=== PATIENT | male | born 1960 | race Caucasian/White ===

== ENCOUNTER 2016-09-30 11:50 | Emergency (ER) | payer BC ==
--- NOTE | 2016-09-30 12:49 | XRAY Preliminary Report ---
Exam: XR Foot 3 View RT IMPRESSION: Normal foot radiography. [facility] SITE ID: [id number]
--- NOTE | 2016-09-30 12:52 | XRAY Report ---
EXAM: RIGHT FOOT RADIOGRAPHY EXAM DATE: 09/30/2016 12:28 PM. CLINICAL HISTORY: Foot swelling with history of gout and arthritis. COMPARISON: None. TECHNIQUE: 3 views. FINDINGS: Bones: Normal. No fractures or bone lesions. Joints: Normal. No subluxations. Soft Tissues: Normal. No soft tissue swelling. IMPRESSION: Normal foot radiography. [facility] Referring Provider Line: [phone] SITE ID: [id number]
[2016-09-30] MEDS ORDERED: predniSONE 20 MG TABLET PO STA (12:55)
[2016-09-30] MEDS ORDERED: HYDROcod/ACETAM 5/325 MG TABLET PO STA (12:55)
[2016-09-30] MEDS ORDERED: COLCHICINE 0.6 MG TABLET PO STA (12:55)
--- NOTE | 2016-09-30 12:59 | ED Physician Documentation ---
PD HPI LOWER EXT INJURY - Stated complaint Stated Complaint: R FOOT PX - Chief complaint Chief Complaint: Ext Problem - History obtained from History obtained from: Patient - History of Present Illness PD HPI LOW EXT INJURY LOCATION: Right, Foot Type of injury: Other (Has a history of gout, this flare has been bothering her for couple weeks and seems worse since he restarted allopurinol week ago. No measured fevers.) - Treatment prior to arrival Treatment prior to arrival: Cannot walk now,using crutches Review of Systems Constitutional: denies: Fever, Chills Nose: reports: Reviewed and negative Cardiac: reports: Reviewed and negative Respiratory: reports: Reviewed and negative PD PAST MEDICAL HISTORY - Past Medical History Past Medical History: Yes Musculoskeletal: Osteoarthritis, Gout Other Past Medical History: prostate ca - Past Surgical History Past Surgical History: Yes - Present Medications Home Medications: Ambulatory Orders Medication Instructions Recorded Confirmed Alprazolam [Xanax] 0.5 mg PO Q6HR PRN 09/30/16 09/30/16 Colchicine 0.6 mg PO Q2H PRN #2 capsule 09/30/16 HYDROcod/ACETAM 5/325 [Mellette 5/325] 1 - 2 ea PO Q6H PRN #15 tablet 09/30/16 predniSONE [Deltasone] 60 mg PO DAILY 5 Days 09/30/16 - Allergies Allergies/Adverse Reactions: Allergies Allergy/AdvReac Type Severity Reaction Status Date / Time No Known Drug Allergies Allergy Verified 09/30/16 11:56 - Social History Does the pt smoke?: No Smoking Status: Never smoker PD ED PE NORMAL - Vitals Vital signs reviewed: Yes - General General: Alert and oriented X 3, No acute distress - Extremities Extremities: Other (Redness and swelling that is focused between the first and second metatarsals distally without limited range of motion or tenderness, bounding pedal pulses.) - Neuro Neuro: Alert and oriented X 3, Normal speech - Psych Psych: Normal mood, Normal affect Results - Vitals Vitals: Vital Signs - 24 hr 09/30/16 09/30/16 11:54 13:24 Temperature 36.7 C 36.8 C Heart Rate 94 90 Respiratory 18 18 Rate Blood Pressure 127/87 H 117/69 O2 Saturation 97 5 L Oxygen O2 Source Room air - Rads (name of study) R foot 3v Radiology: EMP read contemporaneously (normal) PD MEDICAL DECISION MAKING - ED course ED course: Seems like he was having a gout flare, he was taking allopurinol only as needed , it was discussed that this is a prophylactic medication actually makes flares worse. Departure - Departure Disposition: 01 Home, Self Care Clinical Impression: Gout attack Qualifiers: Gout site: foot Gout etiology: unspecified cause Laterality: right Qualified Code(s): M10.9 - Gout, unspecified Condition: Good Record reviewed to determine appropriate education?: Yes Instructions: Gout Eat Prevent, ED Arthritis Gout Prescriptions: Colchicine 0.6 mg PO Q2H PRN #2 capsule PRN Reason: gout predniSONE [Deltasone] 60 mg PO DAILY 5 Days HYDROcod/ACETAM 5/325 [Mellette 5/325] 1 - 2 ea PO Q6H PRN #15 tablet PRN Reason: Pain Comments: Stop the allopurinol for now, you can restart it in 3-6 weeks after the flare is over. Call your doctor to arrange a follow up appointment. Make the next available appointment. In the interim return anytime if worse or if new symptoms develop. Your blood pressure was elevated today on check in to the emergency department. This does not mean that you have hypertension, it is a common phenomenon to check into the emergency department and have elevated blood pressure. I recommend that you see your primary care physician within the week to have it rechecked when you're feeling better. Do not drink or drive while on narcotic pain medicine. Note that many narcotic pain relievers also contain tylenol/acetaminophen. Please ensure that your total dose of acetaminophen from all sources does not exceed 3 grams (3000mg) per day. You may constipated on this medication, take a stool softener such as "Colace" twice a day while you are on it. Also recommend a [id number] laxative such as senna or MiraLAX any day that you do not have a bowel movement. If you received narcotic pain medication in the emergency department, do not drive or operate machinery for the next 24 hours. Forms: Activity restrictions Discharge Date/Time: 09/30/16 13:25
[2016-09-30] MEDS ORDERED: HYDROcod/ACETAM 5/325 MG TABLET ONE (13:10)
[2016-09-30] MEDS ORDERED: predniSONE 20 MG TABLET ONE (13:10)
[2016-09-30 13:25] VITALS: BP 117/69
== END 2016-09-30 13:25 | disposition home or self-care (01) ==
LOC: ED 11:50
DX: M10.9 Gout, unspecified (principal); R03.0 Elevated blood-pressure reading, without diagnosis of hypertension; M19.90 Unspecified osteoarthritis, unspecified site; Z85.46 Personal history of malignant neoplasm of prostate
CPT/HCPCS: 99283